=== PATIENT | female | born 1965 | race Two or more races ===

== ENCOUNTER 2017-10-12 11:35 | Emergency (ER) | payer SELFPAY ==
[~2017-10-12] VITALS: Ht 157.5 cm; Wt 72.6 kg
--- NOTE | 2017-10-12 12:06 | PHYS DOC ---
Adult General Chief Complaint Chief Complaint: ABDOMINAL PAIN HPI HPI Patient is a 52 year old female who presents with right lower quadrant pain. She states his been going on for 4-5 months and is made worse when she walks long periods of time. She states she feels a lump in her right lower quadrant that comes and goes. She denies any nausea vomiting fevers chills she denies any dysuria or constipation or diarrhea. She states she's been taking ibuprofen for this. She states she has a history of "cancer" that runs in her family. Review of Systems Review of Systems Constitutional: Denies fever or chills [] Eyes: Denies change in visual acuity, redness, or eye pain [] HENT: Denies nasal congestion or sore throat [] Respiratory: Denies cough or shortness of breath [] Cardiovascular: No additional information not addressed in HPI [] GI: Positive for abdominal pain, denies any nausea, vomiting, bloody stools or diarrhea [] : Denies dysuria or hematuria [] Musculoskeletal: Denies back pain or joint pain [] Integument: Denies rash or skin lesions [] Neurologic: Denies headache, focal weakness or sensory changes [] Endocrine: Denies polyuria or polydipsia [] All other systems were reviewed and found to be within normal limits, except as documented in this note. Current Medications Current Medications Current Medications Medications (Trade) Dose Ordered Sig/[place] Start Time Stop Time Status Last Admin Dose Admin Ceftriaxone Sodium 50 ml @ 100 mls/hr 1X ONCE 10/12/17 14:15 10/12/17 14:44 DC 10/12/17 14:12 100 MLS/HR Info (Do NOT chart on this entry -- for MONITORING) 1 each PRN DAILY PRN 10/12/17 13:30 10/12/17 15:02 DC Iohexol (Omnipaque 300 Mg/ml) 75 ml 1X ONCE 10/12/17 14:00 10/12/17 14:01 DC 10/12/17 13:47 75 ML Morphine Sulfate 2 mg PRN Q15MIN PRN 10/12/17 12:15 10/12/17 15:02 DC 10/12/17 12:34 2 MG Ondansetron HCl (Zofran) 4 mg 1X ONCE 10/12/17 13:00 10/12/17 13:01 DC 10/12/17 12:32 4 MG Sodium Chloride 1,000 ml @ 1,000 mls/hr 1X ONCE 10/12/17 12:15 10/12/17 13:14 DC 10/12/17 12:32 1,000 MLS/HR Allergies Allergies Allergies Coded Allergies Type Severity Reaction Last Updated Verified No Known Drug Allergies 10/12/17 No Physical Exam Physical Exam Constitutional: Well developed, well nourished, no acute distress, non-toxic appearance. [] HENT: Normocephalic, atraumatic, bilateral external ears normal, oropharynx moist, no oral exudates, nose normal. [] Eyes: PERRLA, EOMI, conjunctiva normal, no discharge. [] Neck: Normal range of motion, no tenderness, supple, no stridor. [] Cardiovascular:Heart rate regular rhythm, no murmur [] Lungs & Thorax: Bilateral breath sounds clear to auscultation [] Abdomen: Bowel sounds normal, soft, mild tender palpation in the right lower quadrant, no rebound guarding, no masses, no pulsatile masses. [] Skin: Warm, dry, no erythema, no rash. [] Back: No tenderness, no CVA tenderness. [] Extremities: No tenderness, no cyanosis, no clubbing, ROM intact, no edema. [] Neurologic: Alert and oriented X 3, normal motor function, normal sensory function, no focal deficits noted. [] Psychologic: Affect normal, judgement normal, mood normal. [] Current Patient Data Vital Signs Vital Signs Date Time Temp Pulse Resp B/P (MAP) Pulse Ox O2 Delivery O2 Flow Rate FiO2 10/12/17 14:30 60 18 143/90 (107) 98 Room Air 10/12/17 11:40 98.7 98.7 Lab Values Laboratory Tests Test 10/12/17 11:53 10/12/17 12:10 Urine Collection Type Void Urine Color Yellow Urine Clarity Clear Urine pH 7.5 Urine Specific [place] 1.020 Urine Protein Negative mg/dL (NEG-TRACE) Urine Glucose (UA) Negative mg/dL (NEG) Urine Ketones (Stick) Negative mg/dL (NEG) Urine Blood Moderate (NEG) Urine Nitrite Negative (NEG) Urine Bilirubin Negative (NEG) Urine Urobilinogen Dipstick 1.0 mg/dL (0.2 mg/dL) Urine Leukocyte Esterase Large (NEG) Urine RBC 3-5 /HPF (0-2) Urine WBC 11-20 /HPF (0-4) Urine Squamous Epithelial Cells Mod /LPF Urine Amorphous Sediment Present /HPF Urine Bacteria Few /HPF (0-FEW) Urine Mucus Marked /LPF Urine Opiates Screen Neg (NEG) Urine Methadone Screen Neg (NEG) Urine Barbiturates Neg (NEG) Urine Phencyclidine Screen Neg (NEG) Urine Amphetamine/Methamphetamine Neg (NEG) Urine Benzodiazepines Screen Neg (NEG) Urine Cocaine Screen Neg (NEG) Urine Cannabinoids Screen Neg (NEG) Urine Ethyl Alcohol Neg (NEG) White Blood Count 8.0 x10^3/uL (4.0-11.0) Red Blood Count 5.03 x10^6/uL (3.50-5.40) Hemoglobin 15.6 g/dL (12.0-15.5) H Hematocrit 45.7 % (36.0-47.0) Mean Corpuscular Volume 91 fL (79-100) Mean Corpuscular Hemoglobin 31 pg (25-35) Mean Corpuscular Hemoglobin Concent 34 g/dL (31-37) Red Cell Distribution Width 13.1 % (11.5-14.5) Platelet Count 327 x10^3/uL (140-400) Neutrophils (%) (Auto) 54 % (31-73) Lymphocytes (%) (Auto) 36 % (24-48) Monocytes (%) (Auto) 8 % (0-9) Eosinophils (%) (Auto) 1 % (0-3) Basophils (%) (Auto) 1 % (0-3) Neutrophils # (Auto) 4.3 x10^3uL (1.8-7.7) Lymphocytes # (Auto) 2.9 x10^3/uL (1.0-4.8) Monocytes # (Auto) 0.6 x10^3/uL (0.0-1.1) Eosinophils # (Auto) 0.1 x10^3/uL (0.0-0.7) Basophils # (Auto) 0.1 x10^3/uL (0.0-0.2) Prothrombin Time 13.1 SEC (11.7-14.0) Prothrombin Time INR 1.1 (0.8-1.1) PTT 32 SEC (24-38) Sodium Level 141 mmol/L (136-145) Potassium Level 3.5 mmol/L (3.5-5.1) Chloride Level 105 mmol/L (98-107) Carbon Dioxide Level 30 mmol/L (21-32) Anion Gap 6 (6-14) Blood Urea Nitrogen 12 mg/dL (7-20) Creatinine 0.6 mg/dL (0.6-1.0) Estimated GFR (Cockcroft-Gault) 105.4 Glucose Level 97 mg/dL (70-99) Calcium Level 8.9 mg/dL (8.5-10.1) Total Bilirubin 0.8 mg/dL (0.2-1.0) Direct Bilirubin 0.1 mg/dL (0.0-0.2) Aspartate Amino Transferase (AST) 19 U/L (15-37) Alanine Aminotransferase (ALT) 37 U/L (14-59) Alkaline Phosphatase 127 U/L (46-116) H Creatine Kinase 111 U/L (26-192) Creatine Kinase MB (Mass) 0.8 ng/mL (0.0-3.6) Creatine Kinase MB Relative Index 0.7 % (0-4) Total Protein 7.9 g/dL (6.4-8.2) Albumin 3.8 g/dL (3.4-5.0) Lipase 174 U/L (73-393) Laboratory Tests 10/12/17 12:10 Laboratory Tests 10/12/17 12:10 EKG EKG [] Radiology/Procedures Radiology/Procedures [facility] [address] [place], [place] [id number] IMAGING REPORT Signed PATIENT: STAN FAUST ACCOUNT: [id number] : 1965 LOCATION: ER AGE: 52 SEX: F EXAM STATUS: REG ER ORD. PHYSICIAN: BRISEIDA JARRELL MD REASON: rlq pain PROCEDURE: CT ABD PELV W/ IV CONTRST ONLY PQRS Compliance Statement: One or more of the following individualized dose reduction techniques were utilized for this examination: 1. Automated exposure control 2. Adjustment of the mA and/or kV according to patient size 3. Use of iterative reconstruction technique CT ABD PELV W/ IV CONTRST ONLY Clinical Indication: rlq pain x4 months. Comparison: None. Technique: Helical CT imaging of the abdomen and pelvis is performed after 75 cc Omnipaque 300 IV contrast. Oral contrast not given. Findings: There are moderate groundglass and linear opacities in the bilateral lower lobes. Cardiac size normal. There is fatty infiltration of the liver. There is cholelithiasis. Spleen, pancreas, adrenal glands, abdominal aorta, and kidneys are normal. Stomach not well distended. No dilated small bowel. There is no colon wall thickening. The appendix is normal. No abdominal adenopathy or free fluid. The urinary bladder is normal. Uterus unremarkable. No pelvic free fluid. Degenerative spondylosis of L5/S1. Probable bone island intertrochanteric left femur. IMPRESSION: 1. No acute abdominal or pelvic abnormality. 2. Moderate groundglass and linear opacities in the bilateral lower lobes. Finding is probably atelectasis or scarring in the absence of respiratory symptoms. 3. Mild fatty infiltration of the liver. 4. Cholelithiasis. DICTATED and SIGNED BY: JAMIE MARTÍNEZ MD DATE: 10/12/171411 CC: BRISEIDA JARRELL MD; NO PCP ~ Impressions: Right-sided abdominal/hip pain uti Course & Med Decision Making Course & Med Decision Making Pertinent Labs and Imaging studies reviewed. (See chart for details) I believe that most of her pain is likely in her hip and this urinary tract infection is made it worse. I discussed CT scan, labs and urinalysis findings with the patient through her [id number] he's been interpreting. She's being discharged after she received IV antibiotics with oral antibiotics for the next 3 days. She is to follow-up with Dr. Humphrey or his partner or to return back to ER for additional concerns. Patient's agreeable plan being discharged in stable condition at this time. Dragon Disclaimer Dragon Disclaimer This electronic medical record was generated, in whole or in part, using a voice recognition dictation system. Departure Departure Impression: Primary Impression: UTI (urinary tract infection) Disposition: 01 HOME, SELF-CARE Condition: STABLE Referrals: KRISTY HUMPHREY MD Patient Instructions: Urinary Tract Infection Additional Instructions: The CAT scan of your abdomen pelvis did not show any abnormalities or other concerns for your pain that you've been experiencing in your right lower quadrant. You have a bladder infection you received antibiotics you will need to go home with antibiotics for next 3 days. This could be your hip that's causing your pain and he can try taking Advil [id number] for pain. If your pain gets worse, he developed fevers, troubles having bowel movements or urinating or other concerns you follow-up with Dr. Humphrey. Please call his office and schedule follow-up appointment. Ileus return back to emergency department for further evaluation and treatment. Scripts Ciprofloxacin Hcl (CIPRO) 500 Mg Tablet 1 TAB PO BID, #6 TAB Prov: BRISEIDA JARRELL MD 10/12/17 BRISEIDA JARRELL MD Oct 12, 2017 12:06
[2017-10-12] MEDS ORDERED: IV NORMAL SALINE 1000ML BAG 1,000 ML IV ONE (12:15)
[2017-10-12] MEDS ORDERED: MORPHINE SULFATE 2 MG/ML DISP.SYRIN. IV/SQ PRN (12:15)
[2017-10-12 12:22] LABS: BASO # 0.1 x10^3/uL (0.0-0.2); BASO % 1 % (0-3); EOS % 1 % (0-3); HEMATOCRIT 45.7 % (36.0-47.0); HEMOGLOBIN 15.6 g/dL (12.0-15.5); LYMPH # 2.9 x10^3/uL (1.0-4.8); LYMPH % 36 % (24-48); MEAN CORPUSCULAR HEMOGLOBIN 31 pg (25-35); MEAN CORPUSCULAR HGB CONC 34 g/dL (31-37); MEAN CORPUSCULAR VOLUME 91 fL (79-100); MONO % 8 % (0-9); NEUT % 54 % (31-73); PLATELET COUNT 327 x10^3/uL (140-400); RED BLOOD COUNT 5.03 x10^6/uL (3.50-5.40); RED CELL DISTRIBUTION WIDTH 13.1 % (11.5-14.5)
[2017-10-12 12:24] LABS: BILIRUBIN,URINE NEGATIVE (NEG); GLUCOSE,URINE NEGATIVE (NEG); NITRITE,URINE NEGATIVE (NEG); PH,URINE 7.5; PROTEIN,URINE NEGATIVE (NEG-TRACE)
[2017-10-12 12:30] LABS: BARBITURATES NEG (NEG); BENZODIAZEPINES NEG (NEG); CANNABINOIDS NEG (NEG); COCAINE NEG (NEG); METHADONE NEG (NEG); OPIATES NEG (NEG); PHENCYCLIDINE NEG (NEG)
[2017-10-12 12:33] LABS: CALCIUM 8.9 mg/dL (8.5-10.1); CREATININE 0.6 mg/dL (0.6-1.0); GFR 105.4; POTASSIUM 3.5 mmol/L (3.5-5.1)
[2017-10-12 12:43] LABS: ALBUMIN 3.8 g/dL (3.4-5.0); DIRECT BILIRUBIN 0.1 mg/dL (0.0-0.2); TOTAL BILIRUBIN 0.8 mg/dL (0.2-1.0); TOTAL PROTEIN 7.9 g/dL (6.4-8.2)
[2017-10-12 12:46] LABS: INR 1.1 (0.8-1.1); PROTHROMBIN TIME PATIENT 13.1 SEC (11.7-14.0)
[2017-10-12 12:47] LABS: CKMB MASS 0.8 ng/mL (0.0-3.6)
[2017-10-12 12:56] LABS: BACTERIA,URINE FEW /HPF (0-FEW); SQUAMOUS EPITHELIAL CELL,UR MOD /LPF
[2017-10-12] MEDS ORDERED: ONDANSETRON PF 4 MG/2 ML VIAL. IV ONE (13:00)
[2017-10-12] MEDS ORDERED: CONTRAST GIVEN MC PRN (13:30)
[2017-10-12] MEDS ORDERED: IOHEXOL 300 MG/ML 100ML VIAL. IV ONE (14:00)
--- NOTE | 2017-10-12 14:21 | RAD ---
PQRS Compliance Statement: One or more of the following individualized dose reduction techniques were utilized for this examination: 1. Automated exposure control 2. Adjustment of the mA and/or kV according to patient size 3. Use of iterative reconstruction technique CT ABD PELV W/ IV CONTRST ONLY Clinical Indication: rlq pain x4 months. Comparison: None. Technique: Helical CT imaging of the abdomen and pelvis is performed after 75 cc Omnipaque 300 IV contrast. Oral contrast not given. Findings: There are moderate groundglass and linear opacities in the bilateral lower lobes. Cardiac size normal. There is fatty infiltration of the liver. There is cholelithiasis. Spleen, pancreas, adrenal glands, abdominal aorta, and kidneys are normal. Stomach not well distended. No dilated small bowel. There is no colon wall thickening. The appendix is normal. No abdominal adenopathy or free fluid. The urinary bladder is normal. Uterus unremarkable. No pelvic free fluid. Degenerative spondylosis of L5/S1. Probable bone island intertrochanteric left femur. IMPRESSION: 1. No acute abdominal or pelvic abnormality. 2. Moderate groundglass and linear opacities in the bilateral lower lobes. Finding is probably atelectasis or scarring in the absence of respiratory symptoms. 3. Mild fatty infiltration of the liver. 4. Cholelithiasis.
[2017-10-12 14:30] VITALS: BP 143/90
[2017-10-12] MEDS ORDERED: CIPR500T94 PO (14:30)
== END 2017-10-12 15:02 | disposition home or self-care (01) ==
LOC: ER 11:35
DX: N39.0 Urinary tract infection, site not specified (principal)
CPT/HCPCS: 36415; 74177; 80048; 80076; 80307; 81001; 82553; 83690; 85025; 85610; 85730; 87086; 96361; 96365; 96375; 99285; J0690; J2270; J2405; J7030; Q9967; G0479